=== PATIENT | female | born 1965 | race African-American/Black ===

== ENCOUNTER 2017-11-18 08:11 | Emergency (ER) | payer OTHER ==
[~2017-11-18] VITALS: Ht 157.5 cm; Wt 61.2 kg
[~2017-11-18 08:11] MED LIST: BACTRIM DS TAB1 EACH PO; CLEOCIN HCL150 MG PO; FLEXERIL PO; HYDROCODON-ACE1 EAC7 PO; IBUPROFEN 600600 M1 PO; IBUPROFEN 800800 M1 PO; IBUPROFEN 800800 MG PO; LIDOCAINE VISC100 M1 SWISH&SPIT; LISINOPRIL10 MG PO; MOBIC7.5 MG PO; NOHOMEMEDICATIONS; NORCO 5-325 TA1 EACH PO; PREDNISONE 20 M20 M1 PO; VICODIN 5-3001 EACH PO
[2017-11-18 08:47] LABS: HEMATOCRIT 42.1 % (37.0-47.0); HEMOGLOBIN 14.2 gm/dL (12.0-15.0); MCH 28.9 pg (26.0-34.0); MCHC 33.7 g/dL (28.0-37.0); MCV 85.7 fL (80.0-100.0); NUCLEATED RBCS 0 /100WBC; PLATELET COUNT* 266 thou/uL (150-400); RBC 4.91 mil/uL (4.20-5.00); RDW-CV 14.6 % (10.5-14.5); WBC 7.5 thou/uL (4.0-11.0)
[2017-11-18 08:55] LABS: ANION GAP 13 mmol/L (7-16); BUN 9 mg/dL (7-18); CALCIUM 8.7 mg/dL (8.5-10.1); CHLORIDE 102 mmol/L (98-107); CO2 24 mmol/L (21-32); CREATININE 0.7 mg/dL (0.6-1.3); GLUCOSE 109 mg/dL (70-99); POTASSIUM 3.9 mmol/L (3.5-5.1); SODIUM 139 mmol/L (136-145)
[2017-11-18 09:08] LABS: ALKALINE PHOSPHATASE 129 U/L (46-116); LIPASE 125 U/L (73-393); MAGNESIUM 2.4 mg/dL (1.8-2.4); NT-PRO BRAIN NAT PEPTIDE 11 pg/mL (<300); SGOT 145 U/L (15-37); SGPT 100 U/L (30-65); TOTAL BILIRUBIN 0.2 mg/dL (<0.1-1.0); TOTAL PROTEIN 8.4 g/dL (6.4-8.2); TROPONIN-I LEVEL <0.06 ng/mL (<0.06)
[2017-11-18 09:11] LABS: ABSOLUTE BASOPHILS 0.2 thou/uL (0.0-0.2); ABSOLUTE EOSINOPHILS 0.3 thou/uL (0.0-0.7); ABSOLUTE LYMPHOCYTES 5.9 thou/uL (0.8-5.3); ABSOLUTE MONOCYTES 0.6 thou/uL (0.0-1.2); ABSOLUTE NEUTROPHILS 0.5 thou/uL (1.6-8.1); PLATELET ESTIMATE ADEQUATE
[2017-11-18 09:19] LABS: URINE BILIRUBIN NEGATIVE (Negative); URINE BLOOD TRACE (Negative); URINE CLARITY CLEAR; URINE COLOR YELLOW; URINE GLUCOSE-RANDOM NEGATIVE (Negative); URINE KETONES NEGATIVE (Negative); URINE LEUKOCYTES-REFLEX NEGATIVE (Negative); URINE NITRITE-REFLEX NEGATIVE (Negative); URINE PROTEIN NEGATIVE (Negative); URINE SPECIFIC GRAVITY <= 1.005 (1.005-1.030); URINE UROBILINOGEN 0.2 E.U./dl (0.2-1.0)
[2017-11-18 09:28] LABS: AMP/METHAMP Negative (Negative); BARBITURATES Negative (Negative); BENZODIAZEPINES Negative (Negative); COCAINE Negative (Negative); METHADONE Negative (Negative); OPIATES Negative (Negative); PCP Negative (Negative); THC Negative (Negative)
[2017-11-18 12:49] VITALS: BP 116/83
--- NOTE | 2017-11-18 16:35 | EKG ---
[place] [address] ELECTROCARDIOGRAM REPORT Name: MUNIRA VILLELA Room: [facility]#: [id number] Admission: 11/18/17 Attend Phys: Discharge: 11/18/17 Date of : 63 Report #: [id number] THIS REPORT FOR: //name// [facility] ED Test Date: 2017-11-18 Test Time: 08:22:15 Pat Name: MUNIRA DUNBAR Department: Room: Gender: F Upper Cutter: SHERIF : 1965 Requested By: Rommel Gilman Order Number: [id number] MD: Jt Cullen Measurements Intervals [place] Rate: 82 P: 47 AK: 180 QRS: 29 QRSD: 91 T: 40 QT: 383 QTc: 448 Interpretive Statements Sinus rhythm Probable left atrial enlargement RSR' in V1 or V2, probably normal variant No previous ECG available for comparison Electronically Signed On 11-18-2017 16:34:43 CDT by Jt Cullen [email or web address] <ELECTRONICALLY SIGNED> By: Jt Cullen MD, [facility] 11/18/17 1634 D: [id number] 1 Jt Cullen MD, FACC /EPI
--- NOTE | 2017-11-19 11:29 | EKG ---
[place] [address] ELECTROCARDIOGRAM REPORT Name: CARLITOS VILLELAQUELINE Kayla Room: [facility]#: [id number] Admission: 11/18/17 Attend Phys: Discharge: 11/18/17 Date of : 63 Report #: [id number] THIS REPORT FOR: //name// [facility] Test Date: 2017-11-18 Test Time: 11:43:54 Pat Name: MUNIRA DUNBAR Department: Room: Gender: F [employer]: NAV : 1965 Requested By: Rommel Gilman Order Number: [id number] MD: Román Valenzuela Measurements Intervals [place] Rate: 81 P: 39 DE: 201 QRS: 49 QRSD: 89 T: 29 QT: 408 QTc: 474 Interpretive Statements Sinus rhythm RSR' in V1 or V2, probably normal variant Compared to ECG 11/18/2017 08:22:15 No significant changes Electronically Signed On 11-19-2017 11:29:22 CDT by Román Valenzuela [email or web address] <ELECTRONICALLY SIGNED> By: Román Valenzuela MD, [facility] 11/19/17 1129 1143 1143 Román Valenzuela MD, FACC /EPI
== END 2017-11-18 12:49 | disposition home or self-care (01) ==
LOC: M.ERS 08:11
PROVIDERS: Emergency Medicine Emergency Medical Services
DX: F10.129 Alcohol abuse with intoxication, unspecified (principal); R07.9 Chest pain, unspecified; M19.90 Unspecified osteoarthritis, unspecified site; G89.29 Other chronic pain; M25.569 Pain in unspecified knee; F17.210 Nicotine dependence, cigarettes, uncomplicated; Z88.5 Allergy status to narcotic agent; Y90.8 Blood alcohol level of 240 mg/100 ml or more

== ENCOUNTER 2018-09-24 11:18 | Emergency (ER) | payer OTHER ==
[~2018-09-24] VITALS: Ht 147.3 cm; Wt 63.5 kg
[2018-09-24] MEDS ORDERED: VITAMIN D5000 UNIT (11:32)
[2018-09-24] MEDS ORDERED: ROBAXIN500 MG PO (11:36)
[2018-09-24] MEDS ORDERED: MEDROLDOSEPACK PO (11:36)
[2018-09-24 11:44] VITALS: BP 151/86
== END 2018-09-24 11:44 | disposition home or self-care (01) ==
LOC: M.ERS 11:18
DX: M25.511 Pain in right shoulder (principal); Z76.0 Encounter for issue of repeat prescription; M19.90 Unspecified osteoarthritis, unspecified site; G89.29 Other chronic pain; M25.569 Pain in unspecified knee; F17.210 Nicotine dependence, cigarettes, uncomplicated; Z88.5 Allergy status to narcotic agent

== ENCOUNTER 2019-07-06 19:41 | Emergency (ER) | payer OTHER ==
[~2019-07-06] VITALS: Ht 147.3 cm; Wt 63.5 kg
[~2019-07-06 19:41] MED LIST changes: +ANTIVERT25 MG PO; +MEDROLDOSEPACK PO; +ROBAXIN500 MG PO; +VITAMIN D5000 UNIT
[2019-07-06] MEDS ORDERED: COZAAR 25 MG TA25 M1 PO (19:58)
[2019-07-06] MEDS ORDERED: FUROSEMIDE 20 M20 MG PO (19:59)
[2019-07-06] MEDS ORDERED: TRAMADOL 50 MG50 MG PO (19:59)
[2019-07-06] MEDS ORDERED: KLOR-CON 10 ER10 MEQ PO (19:59)
[2019-07-06 21:15] VITALS: BP 151/106
== END 2019-07-06 21:16 | disposition left against medical advice (07) ==
LOC: M.ERS 19:41
DX: Z53.21 Procedure and treatment not carried out due to patient leaving prior to being seen by health care provider (principal)

== ENCOUNTER 2019-08-12 22:35 | Emergency (ER) | payer OTHER ==
[~2019-08-12] VITALS: Ht 147.3 cm; Wt 67.1 kg
[~2019-08-12 22:35] MED LIST changes: +COZAAR 25 MG TA25 M1 PO; +FUROSEMIDE 20 M20 MG PO; +KLOR-CON 10 ER10 MEQ PO; +TRAMADOL 50 MG50 MG PO
[2019-08-12 22:38] VITALS: BP 137/84
== END 2019-08-12 23:56 ==
LOC: M.ERS 22:35
DX: M54.2 Cervicalgia (principal); M19.90 Unspecified osteoarthritis, unspecified site; G89.29 Other chronic pain; F17.210 Nicotine dependence, cigarettes, uncomplicated; Z88.5 Allergy status to narcotic agent; Z88.0 Allergy status to penicillin; Z88.8 Allergy status to other drugs, medicaments and biological substances

== ENCOUNTER 2019-09-09 07:34 | Emergency (ER) | payer OTHER ==
[~2019-09-09] VITALS: Ht 147.3 cm; Wt 67.1 kg
[2019-09-09 08:59] VITALS: BP 149/92
== END 2019-09-09 08:59 | disposition home or self-care (01) ==
LOC: M.ERS 07:34
DX: M25.551 Pain in right hip (principal); M54.2 Cervicalgia; M19.90 Unspecified osteoarthritis, unspecified site; G89.29 Other chronic pain; F17.210 Nicotine dependence, cigarettes, uncomplicated; Z88.5 Allergy status to narcotic agent; Z88.0 Allergy status to penicillin; Z88.8 Allergy status to other drugs, medicaments and biological substances; W18.39XA Other fall on same level, initial encounter; Y92.89 Other specified places as the place of occurrence of the external cause; Y93.89 Activity, other specified; Y99.8 Other external cause status